=== PATIENT | female | born 1955 | race Two or more races ===

== ENCOUNTER 2017-02-22 07:52 | Day surgery (SDC) | payer MEDICARE ==
--- NOTE | 2017-02-18 11:41 | Pre-Procedure Note/Attestation ---
Pre-Procedure Note/Attestation Complete Prior to Procedure Planned Procedure: bilateral Procedure Narrative: 1- Ptosis correction upper lids. 2- Entropion correction upper lids. 3-Blepharoplasty uppers lids. Indications for Procedure Pre-Operative Diagnosis: 1- Blepharoptosis upper lids 2-Entropion upper lids. 3-Blepharochalasis upper lids Attestation I attest that I discussed the nature of the procedure; its benefits; risks and complications; and alternatives (and the risks and benefits of such alternatives ), prior to the procedure, with the patient (or the patient's legal community relations representative). I attest that, if there was a reasonable possibility of needing a blood transfusion, the patient (or the patient's legal community relations representative) was given the [facility] standardized written summary, pursuant to the Benoit Tan Blood Safety Act ([place] Health and Safety Code # 1645, as amended). I attest that I re-evaluated the patient just prior to the surgery and that there has been no change in the patient's H&P, except as documented below: ARIANNA ALMANZAR Feb 18, 2017 11:41
[2017-02-22] VITALS (8 sets, daily range): BP systolic 115–150; BP diastolic 70–88
[~2017-02-22] VITALS: Ht 157.5 cm; Wt 58.1 kg
[~2017-02-22 07:52] MED LIST: Akten 3.5% 1ml Btl BOTH EYES ONE; BUSPIRONE HCL10 M1 ORAL; LEXAPRO10 MG ORAL; LOTREL 5-40 MG1 EACH ORAL; Lidocaine 2% 20mg/ml/Epi 0.005mg/ml 20ml vial ONE; Maxitrol Opth Oint 3.5gm BOTH EYES ONE; OMEPRAZOLE40 M1 ORAL; PRAVASTATIN SOD10 M1 ORAL; Povidone-Iodine 5% opth solution ONE; TENORMIN25 MG ORAL; Tetracaine 0.5% Opth Soln ONE; Tobradex Opth Oint 3.5gm ONE
[2017-02-22] MEDS ORDERED: fentaNYL 100 mcg/2 mL IV ONE (07:53)
[2017-02-22] MEDS ORDERED: NS Irrig 1000ml ONE (07:53)
[2017-02-22] MEDS ORDERED: Midazolam 2mg/2ml Inj ONE (07:53)
[2017-02-22] MEDS ORDERED: Propofol 200mg/20ml IV ONE (07:53)
[2017-02-22] MEDS ORDERED: Lidocaine 1% MPF 10mg/ml 5ml ONE (07:53)
[2017-02-22] MEDS ORDERED: Sterile Water Irrig 1000ml IRRIG ONE (07:53)
[2017-02-22] MEDS ORDERED: DiphenhydrAMINE 50mg/ml Inj ONE ×2 (07:53→08:05)
--- NOTE | 2017-02-22 07:59 | Anethesia Preoperative Eval ---
Anesthesia Pre-op PMH/ROS General Date of Evaluation: Feb 22, 2017 Anesthesiologist: Mitch ASA Score: ASA 2 Mallampati Score Class I : Soft palate, uvula, fauces, pillars visible Class II: Soft palate, uvula, fauces visible Class III: Soft palate, base of uvula visible Class IV: Only hard plate visible Mallampati Classification: Class II Surgeon: Marisabel Diagnosis: Bilateral eyelid ptosis Surgical Procedure: Bilateral blepharoplasty Anesthesia History: none Family History: no anesthesia problems Allergies: Coded Allergies: No Known Allergies (Unverified , 02/22/17) Medications: see eMAR Past Medical History Cardiovascular: Reports: HTN, Denies: CAD, AK, valve dz, arrhythmia, other Pulmonary: Denies: asthma, COPD, MELISSA, other Gastrointestinal/Genitourinary: Reports: GERD, Denies: CRI, ESRD, other Neurologic/Psychiatric: Reports: depression/anxiety, Denies: dementia, CVA, TIA, other Endocrine: Denies: DM, hypothyroidism, steroids, other HEENT: Denies: cataract (L), cataract (R), glaucoma, BOIS FORTE (L), BOIS FORTE (R), other Hematology/Immune: Denies: anemia, DVT, bleeding disorder, other Musculoskeletal/Integumentary: Denies: OA, RA, DJD, DDD, edema, other PSxH Narrative: T&A Anesthesia Pre-op Phys. Exam Physician Exam see chart Constitutional: NAD Cardiovascular: RRR Respiratory: CTA Airway Exam Mallampati Score: Class II MO: full ROM: full Teeth: intact Anesthesia Pre-op A/P Labs see chart Studies Pre-op Studies: EKG - sr Risk Assessment & Plan Assessment: ASA II Plan: MAC Status Change Before Surgery: No Pre-Antibiotics Drug: N/A HONORIO TURNER M.D. Feb 22, 2017 07:59
[2017-02-22] MEDS ORDERED: Akten 3.5% 1ml Btl ONE (08:03)
[2017-02-22] MEDS ORDERED: LR 1000ml 1,000 ML IVLG SCH (08:36)
--- NOTE | 2017-02-22 08:37 | Immediate Post-Op Evaluation ---
Immediate Post-Op Evalulation Immediate Post-Op Evalulation Procedure: Bilateral blepharoplasty Date of Evaluation: Feb 22, 2017 Time of Evaluation: 10:56 IV Fluids: 400 Blood Products: 0 Estimated Blood Loss: min Urinary Output: 0 Blood Pressure Systolic: 117 Blood Pressure Diastolic: 71 Pulse Rate: 65 Respiratory Rate: 16 O2 Sat by Pulse Oximetry: 98 Temperature (Fahrenheit): 97.8 Pain Score (1-10): 0 Nausea: No Vomiting: No Complications 0 Patient Status: awake, reacts, patent, none Hydration Status: adequate Drug: N/A HONORIO TURNER M.D. Feb 22, 2017 08:37
[2017-02-22] MEDS ORDERED: DiphenhydrAMINE 50mg/ml Inj IVP PRN (08:45)
[2017-02-22] MEDS ORDERED: fentaNYL 100 mcg/2 mL IV PRN (08:45)
--- NOTE | 2017-02-22 10:53 | 48 Hour Post Anesthesia Eval ---
Post Anesthesia Evaluation Procedure: Bilateral blepharoplasty Date of Evaluation: Feb 22, 2017 Airway: patent Nausea: No Vomiting: No Pain Intensity: 0 Hydration Status: adequate Cardiopulmonary Status: at baseline Mental Status/LOC: patient returned to baseline Post-Anesthesia Complications: 0 Follow-up care needed: ready to discharge HONORIO TURNER M.D. Feb 22, 2017 10:53
--- NOTE | 2017-02-22 10:55 | Discharge Summary ---
Discharge Summary Discharge Summary Discharge Summary DATE OF ADMISSION: 02/22/2017 DATE OF DISCHARGE: 02/22/2017 REASON FOR HOSPITALIZATION: 1- Ptosis upper lids 2- Entropion upper lids 3- Blepharoptosis, blepharochalasis upper lids SURGERY PERFORMED: 1- Ptsis correction, upper lids 2- Entropion correction, upper lids 3- Blepharoplasty, upper lids CONDITION IN THE HOSPITAL:The patient tolerated the surgery without complications. DISCHARGE CONDITION: The patient was stable at discharge. DISCHARGE MEDICATIONS: 1. Vigamox eye drops one drop q.i.d, OU 2. Maxitrol eye ointment apply to the wound, bid, OU 3. Keflex capsule one PO q8h 4. Troy 5/325 mg one PO q6h PRN per pain POSTOPERATIVE ORDERS: The patient has to rest at home. No bending, No lifting, No watching Television tonight. POSTOPERATIVE FOLLOW UP: The patient will be followed in my office tomorrow morning at 7 o'clock. ARIANNA ALMANZAR Feb 22, 2017 10:55
--- NOTE | 2017-02-22 10:59 | Brief Operative Note ---
Immediate Post Operative Note Operative Note Chief Complaint: Droopy eyelids, blurry vision, difficulty driving Pre-op Diagnosis: 1- Blepharoptosis upper lids 2-Entropion upper lids. 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 Meyer Anesthesia: local, MAC Specimen: none Complications: none Condition: stable Fluids: 700ml Estimated Blood Loss: minimal Drains: none Implant(s) used?: ARIANNA Luis Feb 22, 2017 10:59
--- NOTE | 2017-02-23 08:47 | Operative Note - Dictated ---
DATE OF OPERATION: 02/22/2017 FACILITY: [facility]. SURGEON: Paulino Petit M.D. PREMIX OPERATOR CONCENTRATE: None. ANESTHESIOLOGIST: Dr. Meyer. Anesthesia: Monitored anesthesia care (MAC) plus local anesthesia with lidocaine 2% with epinephrine 1:100,000. PREOPERATIVE DIAGNOSES: 1. Ptosis, upper lids. 2. Entropion, upper lids. 3. Blepharochalasis and dermatochalasis, upper lids. POSTOPERATIVE DIAGNOSES: 1. Ptosis, upper lids. 2. Entropion, upper lids. 3. Blepharochalasis and dermatochalasis, upper lids. SURGERY PERFORMED: 1. Ptosis correction, upper lids. 2. Entropion correction, upper lids. 3. Blepharoplasty, upper lids. 4. Eyebrow lifting, upper lids. Indication For The Surgery: The patient is a 61-year-old lady with history of hypertension, GERD, and hyperlipidemia. She has had history of tonsillectomy in 1966 and thyroidectomy in 2001. She denies smoking and using alcohol. She is not allergic to any medication. Medications included amlodipine, benazepril, atenolol, omeprazole, atorvastatin, Lexapro, and buspirone. She is complaining of blurry vision, droopy eyelids, and difficulty driving because of upper lid droopiness. 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 This is a progressive dermatochalasis skin disease, which resulted in changes of corneal curvature and astigmatism with covering of the visual axis, which is interruption for driving. The ectropion is in the lower lids and the entropion is in the upper lids, and it is bothersome and makes tearing and corneal irritation. The severity of the patient's dermatochalasis, ptosis, and entropion are clearly demonstrated on enclosed photos and the patient's visual hyman. The only solution for this patient is correction of all those disfigurements and anatomic changes with surgery. Informed Consent: The nature of the surgery, risks, benefits, alternatives, and potential complications were explained to the patient in detail in her language, Farsi. She voiced understanding. The potential complications including, but not limited to bleeding, infection, corneal exposure, overcorrection, undercorrection, ecchymosis, swelling of the face, hematoma, dry eye syndrome, loss of lashes, loss of eyebrows, inequality of both eyes, change in vision, even loss of vision, and loss of the eye were all explained in detail to the patient and voiced understanding and accepted all the complications. Then, she signed the consent form, which is in the chart. Description Of Surgery and Findings: Following that, the patient was taken to the operation room in a stable condition. Lidocaine gel Akten 3.5% were applied to the conjunctivae of both eyes. Following that, the upper lids were marked with a marking pen 10 mm above the root of the eyelashes and 15 mm below the lower part of the eyebrows. About 25 mm of the skin was left to facilitate eye closure. IV sedation was given by the anesthesiologist, Dr. Meyer. After adequate anesthesia and sedation had been achieved, the upper eyelids and forehead were all anesthetized with 2% lidocaine and epinephrine. Following that, using the Bovie knife, the skin and subdermal tissue were dissected from the orbicularis oculi muscle and excised. Cuts were made onto orbicularis oculi muscle. Two fat compartments were released. The fat compartments were sculptured conservatively. Following that, the levator palpebrae superioris muscle was dissected to the aponeurosis of the muscle, and aponeurosis of the muscle was tacked about 6 mm and stitched with 6-0 Vicryl. Then, the palpable stitches were compared to both sides and they were equal. Following that, with 6-0 Vicryl, the marked area of the levator palpebrae superioris muscle was stitched. The stitches were trimmed. Following that, a wedge groove was made 3 mm above the root of the upper eyelid lashes. Following that, the tarsal plate inside the groove was excised and removed. Then, with 6-0 Vicryl, the lids of the groove were stitched together and later eyelid borders were rotated upwards and the lashes were turned from downwards to upwards. Then, the orbicularis oculi muscle was then freed from the bone and the muscle was undermined to the anterior border of the frontal bone. Then, the muscle and skin were undermined to the root of the forehead hair. Then, the eyebrow was released from both sides and moved 10 mm above the superior rim of the orbit. Using 4-0 nylon stitch, the muscle and the skin were stitched to the periosteum of the bone. Both sites were . Following that, the skin was stitched and wound was closed with 6-0 plain gut in the fashion of continuous running. On both sides, the lids then were anesthetized. At the end of the surgery, pressure Band-Aid were placed on the forehead to put pressure on the eyebrow and attached the eyebrow to the periosteum of the frontal bone. Following that, the patient was transferred to the recovery room. In the recovery room, the wound was checked for leakage and there was no leakage. Postoperative orders and directions were given to the patient. The patient will be discharged home upon stabilization. The patient will be followed in my office tomorrow morning. Paulino Petit M.D. DR: [id number] JOB#: [id number] CC:
== END 2017-02-22 12:30 | disposition home or self-care (01) ==
LOC: SUR 07:52
DX: H02.403 Unspecified ptosis of bilateral eyelids (principal); H02.004 Unspecified entropion of left upper eyelid; H02.001 Unspecified entropion of right upper eyelid; H02.34 Blepharochalasis left upper eyelid; H02.31 Blepharochalasis right upper eyelid; I10 Essential (primary) hypertension; K21.9 Gastro-esophageal reflux disease without esophagitis; E89.0 Postprocedural hypothyroidism; H53.8 Other visual disturbances; F32.9 Major depressive disorder, single episode, unspecified; F41.9 Anxiety disorder, unspecified
CPT/HCPCS: 15822; 15824; 67924; J1200; J2250; J2704; 94003; 94150